=== PATIENT | male | born 1940 | race Caucasian/White ===

== ENCOUNTER 2022-04-18 00:02 | Emergency (ER) | payer MEDICARE, OTHER ==
[~2022-04-18] VITALS: Ht 177.8 cm; Wt 71.2 kg
[2022-04-18] MEDS ORDERED: HYDROCODONE/APAP 5-325MG TABLET PO ONE (01:00)
[2022-04-18] MEDS ORDERED: HYDROCODONE/APAP 5-325MG TABLET ONE (01:21)
[2022-04-18] MEDS ORDERED: MAGN400C PO (02:25)
[2022-04-18] MEDS ORDERED: ONDA-104 PO (02:25)
[2022-04-18] MEDS ORDERED: MULT-594 PO (02:25)
[2022-04-18] MEDS ORDERED: LIDO30AD10 TP (02:25)
[2022-04-18] MEDS ORDERED: METO-356 PO (02:25)
[2022-04-18] MEDS ORDERED: APIX5TAB PO (02:25)
[2022-04-18] MEDS ORDERED: AMIO200T5 PO (02:25)
[2022-04-18] MEDS ORDERED: SERT50TA PO (02:25)
[2022-04-18] MEDS ORDERED: ATOR40TA PO (02:25)
[2022-04-18] MEDS ORDERED: LACT1CAP61 PO (02:25)
[2022-04-18] MEDS ORDERED: ZINC220C6 PO (02:25)
[2022-04-18] MEDS ORDERED: SENN-261 PO (02:25)
[2022-04-18] MEDS ORDERED: ASCO-375 PO (02:25)
[2022-04-18] MEDS ORDERED: FERR325T23 PO (02:25)
[2022-04-18] MEDS ORDERED: DEXT15DR6 EACHEYE (02:25)
[2022-04-18] MEDS ORDERED: ACET-2154 PO (02:25)
[2022-04-18] MEDS ORDERED: BUSP5TAB3 PO (02:25)
[2022-04-18] MEDS ORDERED: CHOL10005 PO (02:25)
[2022-04-18] MEDS ORDERED: QUET25TA PO (02:25)
[2022-04-18] MEDS ORDERED: TDAP DIPH,PERTUSS,TET VAC/PF 0.5 ML DISP.SYRIN IM ONE ×2 (02:45→03:00)
--- NOTE | 2022-04-18 02:46 | NUR ---
Given verbal order by Dr Chavez to administer Tdap vaccine.
--- NOTE | 2022-04-18 03:05 | NUR ---
Splint placed to right hand
--- NOTE | 2022-04-18 03:33 | NUR ---
Patient discharged via [facility] ambulance in stable condition, no signs of distress. Written and verbal after care instructions given. Patient verbalizes understanding of instructions. Stressed follow up or return to ER for worsening s/s.
--- NOTE | 2022-04-18 03:55 | NUR ---
Called [facility] ambulance to discharge patient back to the [facility] [address]. 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
--- NOTE | 2022-04-18 04:27 | NUR ---
Patient picked up by [facility] ambulance RA [id number]
[2022-04-18 05:12] VITALS: BP 110/65
== END 2022-04-18 03:33 ==
LOC: ER 00:02
DX: S62.614A Displaced fracture of proximal phalanx of right ring finger, initial encounter for closed fracture (principal); S41.112A Laceration without foreign body of left upper arm, initial encounter; S61.412A Laceration without foreign body of left hand, initial encounter; W18.30XA Fall on same level, unspecified, initial encounter; Y92.129 Unspecified place in nursing home as the place of occurrence of the external cause; I48.91 Unspecified atrial fibrillation; Z95.2 Presence of prosthetic heart valve; F20.9 Schizophrenia, unspecified; F41.9 Anxiety disorder, unspecified; I27.20 Pulmonary hypertension, unspecified; Z79.01 Long term (current) use of anticoagulants; Z79.899 Other long term (current) drug therapy
CPT/HCPCS: 73090; 73130; 90715; A4663